=== PATIENT | male | born 1990 | race African-American/Black ===

== ENCOUNTER 2021-04-28 09:08 | Emergency (ER) | payer MEDICAID ==
[~2021-04-28] VITALS: Ht 167.6 cm; Wt 69.4 kg
[2021-04-28 09:19] VITALS: BP 135/70
--- NOTE | 2021-04-28 09:26 | NUR ---
DR BRIDGES ASSESSING THE PATIENT
[2021-04-28] MEDS ORDERED: NAPR-1192 PO (11:23)
== END 2021-04-28 11:32 | disposition home or self-care (01) ==
LOC: ER 09:11
DX: S63.592A Other specified sprain of left wrist, initial encounter (principal); Z79.1 Long term (current) use of non-steroidal anti-inflammatories (NSAID); W22.01XA Walked into wall, initial encounter; Y93.89 Activity, other specified; Y92.89 Other specified places as the place of occurrence of the external cause; Y99.8 Other external cause status
CPT/HCPCS: 73110; 73130-TC